=== PATIENT | male | born 1970 | race Caucasian/White ===

== ENCOUNTER 2022-01-06 08:03 | Day surgery (SDC) | payer BC ==
[2022-01-06] MEDS ORDERED: Depo-Medrol 40 MG/ML IM ONE (08:04)
[2022-01-06] MEDS ORDERED: BUPIVACAINE 0.5% VIAL IJ ONE (08:04)
[2022-01-06] MEDS ORDERED: Lactated Ringers 1,000 ML IV ONE (10:54)
[2022-01-06] MEDS ORDERED: DIPRIVAN 200 MG/20 ML IV ONE (11:33)
--- NOTE | 2022-01-06 12:56 | XRAY ---
Indication: Bilateral SI joint injection Intraoperative fluoroscopy provided for 20 seconds. 4 digital spot images submitted for interpretation demonstrates posterior needle tips projecting over the inferior left and right SI joint. Correlate with intraoperative findings/report.
--- NOTE | 2022-01-06 13:00 | XRAY ---
20 seconds fluoroscopy time in surgery for injections of both SI joints.
== END 2022-01-06 12:00 | disposition home or self-care (01) ==
LOC: SDC-PAIN 08:03
PROVIDERS: ATTEND Psychiatry & Neurology Pain Medicine
DX: M46.1 Sacroiliitis, not elsewhere classified (principal); Z79.899 Other long term (current) drug therapy; E11.9 Type 2 diabetes mellitus without complications
CPT/HCPCS: 27096; 72202; 77002; 82947; J1030; J2704; G0260